=== PATIENT | female | born 1990 | race Caucasian/White ===

== ENCOUNTER 2017-09-17 22:47 | Emergency (ER) | payer OTHER ==
[~2017-09-17] VITALS: Ht 160 cm; Wt 75.7 kg
[2017-09-17 23:01] VITALS: Ht 160 cm; Wt 75.7 kg
[2017-09-18 00:39] VITALS: BP 126/78
== END 2017-09-18 00:39 | disposition home or self-care (01) ==
LOC: ED 22:47
DX: S01.112A Laceration without foreign body of left eyelid and periocular area, initial encounter (principal); W22.8XXA Striking against or struck by other objects, initial encounter; Y93.89 Activity, other specified; Y92.89 Other specified places as the place of occurrence of the external cause; Y99.8 Other external cause status
CPT/HCPCS: J2001

== ENCOUNTER 2017-09-24 12:23 | Emergency (ER) | payer OTHER ==
[~2017-09-24] VITALS: Ht 160 cm; Wt 74.4 kg
[2017-09-24 12:43] VITALS: BP 120/69; Ht 160 cm; Wt 74.4 kg
== END 2017-09-24 14:09 | disposition home or self-care (01) ==
LOC: ED 12:23
DX: S01.112D Laceration without foreign body of left eyelid and periocular area, subsequent encounter (principal); W22.8XXD Striking against or struck by other objects, subsequent encounter